=== PATIENT | male | born 1965 | race African-American/Black ===

== ENCOUNTER 2016-04-30 17:45 | Emergency (ER) | payer OTHER ==
[~2016-04-30] VITALS: Ht 167.6 cm; Wt 71.2 kg
[2016-04-30 17:49] VITALS: BP 128/83
== END 2016-04-30 18:55 | disposition home or self-care (01) ==
LOC: ER 17:45
DX: S01.112A Laceration without foreign body of left eyelid and periocular area, initial encounter (principal); Y04.8XXA Assault by other bodily force, initial encounter; Y93.89 Activity, other specified; Y92.89 Other specified places as the place of occurrence of the external cause; Y99.9 Unspecified external cause status